=== PATIENT | male | born 1955 ===

== ENCOUNTER 2021-11-11 05:30 | Day surgery (SDC) | payer OTHER ==
[2021-11-11] MEDS ORDERED: PERCOCET 5-3251 EACH PO (09:29)
== END 2021-11-11 15:35 | disposition home or self-care (01) ==
LOC: CIR.AMB 05:30
PROVIDERS: ATTEND Surgery
DX: K64.2 Third degree hemorrhoids (principal); K62.89 Other specified diseases of anus and rectum; R19.7 Diarrhea, unspecified; Z87.891 Personal history of nicotine dependence; F11.21 Opioid dependence, in remission; F10.21 Alcohol dependence, in remission; Z20.822 Contact with and (suspected) exposure to COVID-19